=== PATIENT | male | born 1990 | race Caucasian/White ===

== ENCOUNTER 2018-06-10 17:10 | Emergency (ER) | payer SELFPAY ==
[2018-06-10 17:15] VITALS: BP 152/110; PULSE 89; RESP 18; TEMP 99.5
--- NOTE | 2018-06-10 17:48 | ED ---
Male Urogenital HPI - General Chief complaint: Urogenital Stated complaint: POSS HERNIA Time Seen by Provider: 06/10/18 17:17 Source: patient Mode of arrival: ambulatory Limitations: no limitations - History of Present Illness Initial comments: Patient is a 28-year-old male presenting for left inguinal pain. Patient states has been there for last 3-4 days and that there is a "lump around the left testicle. However, he denies any rubens testicle pain as well as fevers or chills. He states that he has no discharge from the penis and that he did have chlamydia at the age of 25 but was treated with antibiotics and had no problems since then. He also states that it is slightly uncomfortable whenever he urinates but there is no change frequency. - Related Data Previous Rx's Medication Instructions Recorded Clindamycin [Cleocin] 450 mg PO Q8H 7 Days #21 capsule 06/10/18 Allergies Allergy/AdvReac Type Severity Reaction Status Date / Time No Known Allergies Allergy Verified 06/10/18 17:12 Review of Systems ROS Statement: Those systems with pertinent positive or pertinent negative responses have been documented in the HPI. Constitutional: Negative for chills, fatigue and fever. HENT: Negative for congestion. Respiratory: Negative for chest tightness, shortness of breath and wheezing. Negative for cough Cardiovascular: Negative for chest pain and palpitations. Gastrointestinal: Negative for abdominal pain. Negative for abdominal distention , diarrhea, nausea and vomiting. Genitourinary: Positive for dysuria and left inguinal pain. Negative for testicular pain Musculoskeletal: Negative for back pain, neck pain and neck stiffness. Skin: Negative for color change. Neurological: Negative for dizziness, speech difficulty, weakness and light- headedness. Psychiatric/Behavioral: Negative for agitation and confusion. Negative for anxiety ROS Other: All systems not noted in ROS Statement are negative. Past Medical History Past Medical History: No Reported History History of Any Multi-Drug Resistant Organisms: None Reported Past Surgical History: No Surgical Hx Reported Past Psychological History: Anxiety Smoking Status: Current every day smoker Past Alcohol Use History: Occasional Past Drug Use History: Marijuana General Exam - General Exam Comments Initial Comments: Constitutional: Pt is oriented to person, place, and time. Pt appears well- developed and well-nourished. No distress. HENT: Head: Normocephalic and atraumatic. Eyes: EOM are normal. Neck: Normal range of motion. Neck supple. Cardiovascular: Normal rate, regular rhythm, S1 normal, S2 normal and normal heart sounds. Exam reveals no gallop and no friction rub. No murmur heard. Pulmonary/Chest: Effort normal and breath sounds normal. No tachypnea and no bradypnea. No respiratory distress. No wheezes or rales noted. Abdominal: Soft. Bowel sounds are normal. Pt exhibits no shifting dullness, no distension, no pulsatile liver, no fluid wave, no abdominal bruit and no ascites. There is no tenderness. There is no rigidity, no rebound, no guarding, no tenderness at McBurney's point and negative Bautista's sign. Musculoskeletal: Normal range of motion. : There is no testicle pain on palpation, normal scrotal Y is present. No tenderness to palpation on the epididymis nor is there abnormal skin lesions. There is mild effusion and tenderness with no fluctuance in the left inguinal crease at the junction of the thigh to the scrotum. There is no erythema nor lymphadenopathy. Neurological: Pt is alert and oriented to person, place, and time. No cranial nerve deficit. Skin: Skin is warm and dry. No rash noted. Pt is not diaphoretic. No erythema. No pallor. Psychiatric: Pt has a normal mood and affect. Pt behavior is normal. Thought content normal. Limitations: no limitations Course Vital Signs 06/10/18 17:13 Temperature 99.5 F Pulse Rate 89 Respiratory 18 Rate Blood Pressure 152/110 O2 Sat by Pulse 98 Oximetry Medical Decision Making - Medical Decision Making Laboratory studies showed that there is no evidence of urinary tract infection and based on physical exam as well as history, there is very low suspicion for STDs and therefore is were not checked. On physical exam, it appears to be beginning stages of cellulitis and abscess formation but because there is no areas of fluctuance, ultrasound was not performed. It is also possible that this is the beginning stages of hydradenitis superlative a and therefore is given a prescription for clindamycin. Patient was strongly advised follow-up with PCP in next 1-2 days and also advised of emergent pathology such as José gangrene and that he should return immediately to the emergency department if he noticed discoloration. Patient was agreeable plan. - Lab Data Lab Results 06/10/18 Range/Units 18:23 Urine Color Yellow Urine Appearance Clear (Clear) Urine pH 6.0 (5.0-8.0) Ur Specific Fields 1.016 (1.001-1.035) Urine Protein Trace H (Negative) Urine Glucose (UA) Negative (Negative) Urine Ketones 2+ H (Negative) Urine Blood Negative (Negative) Urine Nitrite Negative (Negative) Urine Bilirubin Negative (Negative) Urine Urobilinogen 2.0 (<2.0) mg/dL Ur Leukocyte Esterase Negative (Negative) Disposition Clinical Impression: Cellulitis Disposition: HOME SELF-CARE Condition: Good Instructions: Cellulitis (ED) Prescriptions: Clindamycin [Cleocin] 450 mg PO Q8H 7 Days #21 capsule Is patient prescribed a controlled substance at d/c from ED?: No Referrals: Andrew Morris MD [Primary Care Provider] - 1-2 days Time of Disposition: 19:08
[2018-06-10 18:35] LABS: Appearance,Urine Clear (Clear); Bilirubin,Urine Negative (Negative); Blood,Urine Negative (Negative); Color,Urine Yellow; Glucose,Urine (UA) Negative (Negative); Ketones,Urine 2+ (Negative); Leukocyte Esterase,Urine Negative (Negative); Nitrite,Urine Negative (Negative); Protein,Urine Trace (Negative); Specific Gravity,Urine 1.016 (1.001-1.035)
== END 2018-06-10 19:15 | disposition home or self-care (01) ==
LOC: EC 17:10
DX: L03.314 Cellulitis of groin (principal); L02.214 Cutaneous abscess of groin; F17.200 Nicotine dependence, unspecified, uncomplicated
CPT/HCPCS: 81003; 99283

== ENCOUNTER 2018-06-21 05:52 | Emergency (ER) | payer OTHER ==
[2018-06-21 05:58] VITALS: RESP 16
[2018-06-21] MEDS ORDERED: DIPH,PERTUS(ACELL)TETVAC-LF 0.5 ML VIAL IM ONE (06:11)
--- NOTE | 2018-06-21 06:16 | ED ---
Fall HPI - General Chief Complaint: Fall Stated Complaint: head injury Time Seen by Provider: 06/21/18 06:04 Source: patient, family Mode of arrival: wheelchair - History of Present Illness Initial Comments: This patient is 28-year-old man who presents to be evaluated after he had a fall. Approximate 45 minutes ago the patient attempted to get out of bed to use bathroom and fell striking his head on furniture. The patient states that he had a lot of alcohol to drink and was unsteady. There was no loss consciousness. The patient states that both hands are tingling, but he believes this may be due to anxiety. Patient does not recall when his last tetanus shot was. This pain currently is moderate, aching, and he has not noted worsening or relieving factors. MD Complaint: fall Onset/Timin -: minutes(s) Fall From: standing When Fall Occurred: just prior to arrival Fall Witnessed: yes, by bystander Place Fall Occurred: home Loss of Consciousness: none Prolonged Down Time?: no Symptoms Prior to Fall: none Location: head Severity: moderate Context: tripped/slipped Associated Symptoms: headache - Related Data Previous Rx's Medication Instructions Recorded Clindamycin [Cleocin] 450 mg PO Q8H 7 Days #21 capsule 06/10/18 Allergies Allergy/AdvReac Type Severity Reaction Status Date / Time No Known Allergies Allergy Verified 06/10/18 17:12 Review of Systems ROS Statement: Those systems with pertinent positive or pertinent negative responses have been documented in the HPI. ROS Other: All systems not noted in ROS Statement are negative. Constitutional: Denies: weakness Eyes: Denies: eye pain, vision change ENT: Denies: ear pain, hearing loss, epistaxis Respiratory: Denies: cough, dyspnea Cardiovascular: Denies: chest pain, syncope Gastrointestinal: Denies: abdominal pain, vomiting Skin: Denies: rash Neurological: Reports: headache, paresthesias. Denies: weakness, numbness, vertigo Past Medical History Past Medical History: No Reported History History of Any Multi-Drug Resistant Organisms: None Reported Past Surgical History: Adenoidectomy Past Psychological History: Anxiety Smoking Status: Current every day smoker Past Alcohol Use History: Occasional Past Drug Use History: Marijuana General Exam Limitations: no limitations General appearance: alert, in no apparent distress, appears intoxicated Head exam: Present: normocephalic, other (Patient has approximately 2.5 cm laceration to the scalp. There is some mild tenderness. There is small amount soft tissue swelling. No bony deformity.) Eye exam: Present: normal appearance, PERRL, EOMI, nystagmus. Absent: scleral icterus, conjunctival injection, periorbital swelling, periorbital tenderness ENT exam: Present: normal oropharynx, TM's normal bilaterally, normal external ear exam Neck exam: Present: normal inspection, full ROM. Absent: tenderness Respiratory exam: Present: normal lung sounds bilaterally. Absent: respiratory distress, wheezes, rales, rhonchi, stridor Cardiovascular Exam: Present: regular rate, normal rhythm, normal heart sounds. Absent: systolic murmur, diastolic murmur, rubs, gallop GI/Abdominal exam: Present: soft. Absent: distended, tenderness Back exam: Present: normal inspection. Absent: CVA tenderness (R), CVA tenderness (L), vertebral tenderness Neurological exam: Present: alert, oriented X3, CN II-XII intact. Absent: motor sensory deficit Skin exam: Present: warm, dry, normal color, other (Laceration as above). Absent: rash Course Vital Signs 06/21/18 05:54 Temperature 97.9 F Pulse Rate 82 Respiratory 16 Rate Blood Pressure 131/82 O2 Sat by Pulse 99 Oximetry Disposition Clinical Impression: Fall, Closed head injury, Scalp laceration Disposition: HOME SELF-CARE Condition: Good Instructions: Laceration (ED), Head Injury (ED) Is patient prescribed a controlled substance at d/c from ED?: No Referrals: Andrew Morris MD [Primary Care Provider] - 1-2 days
--- NOTE | 2018-06-21 06:36 | CT ---
EXAM: CT Head Without Intravenous Contrast CLINICAL HISTORY: ITS.REASON CT Reason: Pain TECHNIQUE: Axial computed tomography images of the head/brain without intravenous contrast. CTDI is 54 mGy and DLP is 654 mGy-cm. This CT exam was performed using one or more of the following dose reduction techniques: automated exposure control, adjustment of the mA and/or kV according to patient size, and/or use of iterative reconstruction technique. COMPARISON: No relevant prior studies available. FINDINGS: Brain: No hemorrhage. No edema. Ventricles: Unremarkable. No ventriculomegaly. Bones/joints: No acute fracture. Soft tissues: Unremarkable. Sinuses: No fluid levels. Mastoid air cells: Unremarkable as visualized. No mastoid effusion. IMPRESSION: No acute intracranial findings
[2018-06-21 07:21] VITALS: BP 120/70; PULSE 76; TEMP 98.2
== END 2018-06-21 07:19 | disposition home or self-care (01) ==
LOC: EC 05:52
DX: S01.01XA Laceration without foreign body of scalp, initial encounter (principal); F10.129 Alcohol abuse with intoxication, unspecified; F17.200 Nicotine dependence, unspecified, uncomplicated; Z23 Encounter for immunization; W01.190A Fall on same level from slipping, tripping and stumbling with subsequent striking against furniture, initial encounter; Y93.89 Activity, other specified; Y92.009 Unspecified place in unspecified non-institutional (private) residence as the place of occurrence of the external cause
CPT/HCPCS: 70450; 90471; 90715; 99283